=== PATIENT | male | born 1980 | race Caucasian/White ===

== ENCOUNTER 2017-02-21 13:48 | Emergency (ER) | payer OTHER ==
[2017-02-21] MEDS ORDERED: HYDROmorphone 1 MG/ML Syringe IVPUSH ONE (13:58)
[2017-02-21] MEDS ORDERED: Metoclopramide 10 MG/2 ML SDV IVPUSH ONE (13:58)
[2017-02-21 14:00] VITALS: BP 151/104
[2017-02-21] MEDS ORDERED: Sodium Chloride 0.9% 1,000 ML IV SCH (14:00)
--- NOTE | 2017-02-21 14:03 | EDM.PDOC ---
ED HPI GENERAL MEDICAL PROBLEM - General Chief Complaint: Lower Extremity Injury/Pain Stated Complaint: LEFT LEG INJURY Time Seen by Provider: 02/21/17 13:57 Source of Information: Reports: Patient History Limitations: Reports: No Limitations - History of Present Illness INITIAL COMMENTS - FREE TEXT/NARRATIVE: 36-year-old male presents to the ED with an acute injury to his left ankle area. States he stepped down from heavy equipment about 4-6- feet to the ground and stepped in a hole or uneven ground. . This caused him to suffer an eversion /twist injury to the ankle causing him to fall to the ground. He's been unable to weight-bear since that time. He also has a injury to his left hip is full flexion and extension a contusion to the greater trochanteric process. Injury occurred within the last hour. Patient did drink some Gatorade and took some Motrin en route to the hospital. Onset: Today Onset Date: 02/21/17 Onset Time: 13:00 Duration: Minutes: Location: Reports: Lower Extremity, Left (Left ankle) Quality: Reports: Ache, Throbbing Severity: Severe Improves with: Reports: None Worsens with: Reports: Movement Context: Reports: Other (Came down off of heavy equipment 3-1/2 feet to the ground when he stepped down into abnormal level ground resulting in a eversion twisting injury to his ankle causing him to fall to the ground.). 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 ) Left Ankle Pain Score (Numeric/FACES): 4 - Related Data Allergies Allergy/AdvReac Type Severity Reaction Status Date / Time Penicillins Allergy Hives Verified 02/21/17 13:55 Home Meds: Home Meds Polyethylene Glycol 3350 [MiraLAX] 17 gm PO DAILY #1 cont 02/21/17 [Rx] oxyCODONE HCl/Acetaminophen [Percocet 5-325 mg Tablet] 1 - 2 each PO Q4H PRN # 50 tablet 02/21/17 [Rx] Past Medical History - Past Surgical History Musculoskeletal Surgical History: Reports: Other (See Below) (Closed reduction of fracture right ankle and cast application. Previous anterior dislocation left shoulder. Previous boxer's fracture right fifth finger.) Social & Family History - Tobacco Use Smoking Status *Q: Current Every Day Smoker Tobacco Use Within Last Twelve Months: Cigarettes (1 pack per day.) - Alcohol Use Alcohol Use History: Yes Days Per Week of Alcohol Use: 6 - Living Situation & Occupation Occupation: Employed Review of Systems - Review of Systems Review Of Systems: See Below Constitutional: Denies: Chills, Diaphoresis, Fever, Weakness Eyes: Reports: No Symptoms Ears: Reports: No Symptoms Nose: Reports: No Symptoms Mouth/Throat: Reports: No Symptoms Respiratory: Reports: No Symptoms Cardiovascular: Reports: No Symptoms GI/Abdominal: Reports: No Symptoms Genitourinary: Reports: No Symptoms Musculoskeletal: Reports: Back Pain (Occasional problems with low back pain.) Skin: Reports: No Symptoms Neurological: Reports: No Symptoms Psychiatric: Reports: No Symptoms ED EXAM, GENERAL - Physical Exam Exam: See Below Exam Limited By: Uncooperative General Appearance: WD/WN, Moderate Distress (Obvious pain from fractured left ankle.) Throat/Mouth: Normal Inspection, Normal Lips, Normal Oropharynx Head: Atraumatic, Normocephalic Neck: Normal Inspection, Supple, Non-Tender, Full Range of Motion. No: Lymphadenopathy (L), Lymphadenopathy (R) Respiratory/Chest: No Respiratory Distress, Lungs Clear, Normal Breath Sounds, No Accessory Muscle Use Cardiovascular: Normal Peripheral Pulses, Regular Rate, Rhythm, No Edema, No Murmur Peripheral Pulses: 1+: Posterior Tibial (L), 2+: Dorsalis Pedis (L) GI/Abdominal: Normal Bowel Sounds, Soft, Non-Tender, No Organomegaly Back Exam: Normal Inspection, Full Range of Motion Extremities: Normal Inspection, Normal Range of Motion, Normal Capillary Refill , Increased Warmth ( therefore there is no fracture.), Other (Some tenderness over the greater trochanteric process of his left hip but he's able to fully flex and internally externally rotated. There is marked swelling of both the lateral and medial malleolus. I'm strongly suspicious that he may have torn his deltoid ligament medial malleolus. Very painful to touch around the Achilles tendon and calcaneus. Moderately tender on compression of the midfoot as well.) Neurological: Alert, Oriented, CN II-XII Intact, Normal Cognition Psychiatric: Normal Affect, Normal Mood Skin Exam: Warm, Dry, Normal Color, No Rash ED TRAUMA EXTREMITY PROCEDURES - Splinting Left Lower Extremity Splint Site: Below-knee bulky splint Pre-Procedure NV Status: Normal Post-Procedure NV Status: Normal Splint Material: Fiberglass (Fiberglass posterior slab placed as well as a stirrup splint. Large amount of cotton utilized to produce a bulky dressing around the calcaneus and foot.) Splint Design: Stirrup, Posterior Applied & Form Fitted By: Provider Provider Post-Splint Application NV Check: NV Status Normal Complications: No Course - Vital Signs Last Recorded V/S: Last Vital Signs Temp 36.6 C 02/21/17 13:55 Pulse 81 02/21/17 13:55 Resp 18 02/21/17 13:55 BP 151/104 H 02/21/17 13:55 Pulse Ox 100 02/21/17 13:55 - Orders/Labs/Meds Orders: Active Orders 24 hr Category Date Time Status Ankle Min 3V Lt [CR] Stat Exams 02/21/17 13:58 Taken Foot 2V Lt [CR] Stat Exams 02/21/17 14:00 Taken Foot wo Cont Lt [CT] Stat Exams 02/21/17 14:34 Taken Tibia Fibula Lt [CR] Stat Exams 02/21/17 14:02 Taken DRUG SCREEN, URINE [URCHEM] Stat Lab 02/21/17 14:07 Uncollected Sodium Chloride 0.9% [Normal Saline] 1,000 ml Med 02/21/17 14:00 Active IV ASDIRECTED Medication Orders Sodium Chloride (Normal Saline) 1,000 mls @ 150 mls/hr IV ASDIRECTED DWAYNE Last Admin: 02/21/17 14:10 Dose: 150 mls/hr Labs: Laboratory Tests 02/21/17 02/21/17 02/21/17 Range/Units 15:00 15:00 15:00 WBC 9.62 H (4.23-9.07) K/mm3 RBC 4.72 (4.63-6.08) M/mm3 Hgb 14.4 (13.7-17.5) gm/L Hct 42.3 (40.1-51.0) % MCV 89.6 (79.0-92.2) fl MCH 30.5 (25.7-32.2) pg MCHC 34.0 (32.2-35.5) g/dl RDW Std Deviation 40.0 (35.1-43.9) fL Plt Count 261 (163-337) K/mm3 MPV 8.9 L (9.4-12.3) fl Neutrophils % (Manual) 81 H (40-60) % Band Neutrophils % 5 (0-10) % Lymphocytes % (Manual) 12 L (20-40) % Atypical Lymphs % 0 % Monocytes % (Manual) 1 L (2-10) % Eosinophils % (Manual) 1 (0.8-7.0) % Basophils % (Manual) 0 L (0.2-1.2) Platelet Estimate Adequate RBC Morph Comment Normal PT 10.0 (8.0-13.0) SECONDS INR 0.92 APTT 27 (22-36) SECONDS Sodium 141 (136-145) mEq/L Potassium 3.6 (3.5-5.1) mEq/L Chloride 107 (98-107) mEq/L Carbon Dioxide 25 (21-32) mEq/L Anion Gap 12.6 (5-15) BUN 22 H (7-18) mg/dL Creatinine 1.2 (0.7-1.3) mg/dL Est Cr Clr Drug Dosing 81.54 mL/min Estimated GFR (MDRD) > 60 (>60) mL/min BUN/Creatinine Ratio 18.3 H (14-18) Glucose 109 H (74-106) mg/dL Calcium 8.7 (8.5-10.1) mg/dL Total Bilirubin 0.6 (0.2-1.0) mg/dL AST 23 (15-37) U/L ALT 33 (16-63) U/L Alkaline Phosphatase 71 (46-116) U/L Total Protein 6.8 (6.4-8.2) g/dl Albumin 3.8 (3.4-5.0) g/dl Globulin 3.0 gm/dL Albumin/Globulin Ratio 1.3 (1-2) Meds: Medications Generic Name Dose Route Start Last Admin Trade Name Freq PRN Reason Stop Dose Admin Sodium Chloride 1,000 mls @ 150 mls/hr 02/21/17 14:00 02/21/17 14:10 Normal Saline IV 150 mls/hr ASDIRECTED DWAYNE Administration Discontinued Medications Generic Name Dose Route Start Last Admin Trade Name Freq PRN Reason Stop Dose Admin Hydromorphone HCl 1 mg 02/21/17 13:58 02/21/17 14:11 Dilaudid IVPUSH 02/21/17 13:59 1 mg ONETIME ONE Administration Metoclopramide HCl 10 mg 02/21/17 13:58 02/21/17 14:14 Reglan IVPUSH 02/21/17 13:59 10 mg ONETIME ONE Administration - Radiology Interpretation Free Text/Narrative:: 36-year-old male presents to the ED with a work-related injury. 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 He states he may have missed the first step. At any rate he landed hard on his left foot and ankle which propelled him to the ground. Able to weight-bear since that time. He came to the ED with his boot still in place. The boot had to be cut off. He also has some pain in his left lateral hip where he landed on the ground but he has full range of motion night flexion- extension internal/external rotation of the hip itself. Emanation of his lower extremity showed marked swelling of both the medial and lateral malleoli and clinically I thought he would have a bimalleolar fracture. He is also however very tenderness midfoot and over the calcaneus. Injury occurred about an hour prior to coming to the ED. Plan x-ray tib-fib ankle and left foot. IV has been started patient be given Dilaudid 1 mg IV with Reglan 10 mg IV. - Re-Assessments/Exams Free Text/Narrative Re-Assessment/Exam: 02/21/17 14:27 x-rays of the tib-fib do not reveal any fractures or obvious disruption of the tibial fibular ligament. The the talus also appears to be intact. X-rays of the foot reveal a comminuted fracture of the calcaneus and possibly the inferior aspect of the talus. Plan CT of the foot to be carried out. 02/21/17 15:10: CT confirms a severely comminuted fracture of the calcaneus. There may be a nondisplaced fracture in the talus in one spot as well. Plan will be for a bulky dressing to be placed with posterior slab Ortho-Glass and stirrup to protect the area. I will call [facility] and tentatively arrange an appointment with Dr. Leonard Underwood in a week or so. Patient is to be nonweightbearing and elevate the foot with ice pack to the area as much as possible for the next 3 days. 02/21/17 1530: Spoke with retail sales clerk at [facility] and she will have Dr. Brown look at the x-rays tomorrow morning and make a decision as to when he would like to see him in consultation. They will phone the patient directly to arrange an appointment. She was discharged on Percocet 10/10/24 milligram tablets one or 2 every fours 6 hours as needed for pain relief 40 tablets were provided per prescription today. Also advised MiraLAX powder 17 g daily to prevent secondary constipation. Departure - Departure Time of Disposition: 15:37 Disposition: Home, Self-Care 01 Condition: Fair Clinical Impression: Calcaneus fracture, left Qualifiers: Encounter type: initial encounter Calcaneus location: unspecified portion of calcaneus Fracture type: closed Fracture alignment: displaced Qualified Code(s) : S92.002A - Unspecified fracture of left calcaneus, initial encounter for closed fracture Sprain of left medial ankle joint Qualifiers: Encounter type: initial encounter Qualified Code(s): S93.422A - Sprain of deltoid ligament of left ankle, initial encounter - Discharge Information Prescriptions: oxyCODONE HCl/Acetaminophen [Percocet 5-325 mg Tablet] 1 - 2 each PO Q4H PRN # 50 tablet PRN Reason: pain relief. Polyethylene Glycol 3350 [MiraLAX] 17 gm PO DAILY #1 cont Instructions: Ankle Sprain, Calcaneal Fracture Repair Referrals: PCP,None [Primary Care Provider] - Forms: ED Department Discharge Additional Instructions: Evaluation in the emergency room today in regards to work related injury. Acute injury to the left foot and ankle occurred while stepping down from large machine that was possibly as high as 6 feet off the ground. At any rate acute injury occurred to the left ankle with suspect disruption of the deltoid ligament medial aspect of the ankle. Also associated comminuted fracture of the heel bone her calcaneus was appreciated on x-ray and further imaged by CT. A bulky dressing and splint was placed to protect the area until follow-up with orthopedic surgery in about a week to 10 days time. I have left a message with [facility] in [place] and they will call you tomorrow afternoon after Dr. Leonard Underwood has time to look at the films and make a decision as to when they wish to see you in consultation. In the meantime you are to elevate the left foot as much as possible above the level of her heart ideally. Ice pack to the area for one half hour out of every 4 hours for the next 3 days. Pain medication is to be Percocet 5/325 milligrams one or 2 every 4-6 hours for pain relief as needed. I also sent home some Zofran 4 mg that may be taken under the tongue every 4-6 hours if needed for nausea relief as pain medicine can cause nausea particularly empty stomach. Also suggest starting MiraLAX powder 17 g or 1 scoop daily to prevent the development of constipation from the pain pills. You will be off work for a minimum of 3 months and likely closer to 6 months due to severity of this injury. You're to be nonweightbearing crutch walking of course. - My Orders Last 24 Hours: My Active Orders 02/21/17 13:58 Ankle Min 3V Lt [CR] Stat 02/21/17 14:00 Foot 2V Lt [CR] Stat Sodium Chloride 0.9% [Normal Saline] 1,000 ml IV ASDIRECTED 02/21/17 14:02 Tibia Fibula Lt [CR] Stat 02/21/17 14:07 DRUG SCREEN, URINE [URCHEM] Stat 02/21/17 14:34 Foot wo Cont Lt [CT] Stat - Assessment/Plan Last 24 Hours: My Active Orders 02/21/17 13:58 Ankle Min 3V Lt [CR] Stat 02/21/17 14:00 Foot 2V Lt [CR] Stat Sodium Chloride 0.9% [Normal Saline] 1,000 ml IV ASDIRECTED 02/21/17 14:02 Tibia Fibula Lt [CR] Stat 02/21/17 14:07 DRUG SCREEN, URINE [URCHEM] Stat 02/21/17 14:34 Foot wo Cont Lt [CT] Stat
--- NOTE | 2017-02-22 10:07 | CR ---
Left ankle: Four views of the left ankle were obtained. Comparison: No prior study. Comminuted calcaneal fracture is seen. Bohler's angle is depressed. Fracture lines extend into the subtalar joint. Fracture involves the majority of the calcaneus. No additional fracture is seen. Soft tissue swelling is identified. Impression: 1. Extensive and comminuted calcaneal fracture with depression of Bohler's angle. 2. Soft tissue swelling. Diagnostic code #3
--- NOTE | 2017-02-22 10:07 | CR ---
Left foot: Two views of the left foot were obtained. Comparison: No prior left foot study. Extensive calcaneal fracture again noted. Soft tissue swelling is seen. No additional abnormality is identified within the left foot. Impression: 1. Calcaneal fracture again noted. Nothing acute is seen within the left foot. Diagnostic code #3
--- NOTE | 2017-02-22 11:32 | CR ---
Left tibia and fibula: AP and lateral views of the left tibia and fibula were obtained. Calcaneal fractures are again noted with soft tissue swelling. No additional abnormality is identified on left tibia/fibula study. Impression: 1. Calcaneal fracture with surrounding soft tissue swelling. 2. Left tibia/fibula study is otherwise unremarkable. Diagnostic code #3
--- NOTE | 2017-02-25 13:59 | CT ---
CT left foot Technique: Multiple axial sections through the left foot were obtained. Reconstructed sagittal and coronal images were obtained. Findings: Comminuted calcaneal fracture is identified. Some fragments along the medial calcaneus show rotation with displacement. Displacement of the lateral fragments are up to 7 mm. Displacement of medial fragments are up to 1 cm. There is a fracture anteriorly which involves the subtalar joint. Displacement of the fragment at the subtalar joint measures about 4 mm. Boehler 's angle is depressed. No additional fracture is seen within the foot. Impression: 1. Comminuted and mildly displaced fracture throughout the calcaneus. Involvement of the subtalar joint is seen anteriorly. Depressed Boehler's angle is noted. Diagnostic code #5 MTDD
== END 2017-02-21 15:54 | disposition home or self-care (01) ==
LOC: JD.ED 13:48
DX: S92.002A Unspecified fracture of left calcaneus, initial encounter for closed fracture (principal); S93.422A Sprain of deltoid ligament of left ankle, initial encounter; Z88.0 Allergy status to penicillin; Z79.899 Other long term (current) drug therapy; W31.89XA Contact with other specified machinery, initial encounter; Y93.39 Activity, other involving climbing, rappelling and jumping off; Y99.0 Civilian activity done for income or pay
CPT/HCPCS: 29515; 36415; 73590; 73610; 73620; 73700; 80053; 85025; 85610; 85730; 96361; 96374; 96375; 99284; J1170; J2765; J7040; 99283-25

== ENCOUNTER 2022-05-18 18:01 | Emergency (ER) | payer BC, OTHER ==
[2022-05-18] MEDS ORDERED: Diphtheria,Pertussis(Acell),Tetanus Vaccine 0.5 ML Syringe IM ONE (20:17)
[2022-05-19 02:28] VITALS: BP 165/107; PULSE 79
== END 2022-05-18 21:00 | disposition home or self-care (01) ==
LOC: JD.ED 18:01
DX: S61.214A Laceration without foreign body of right ring finger without damage to nail, initial encounter (principal); F17.210 Nicotine dependence, cigarettes, uncomplicated; Z88.0 Allergy status to penicillin; Z23 Encounter for immunization; W26.8XXA Contact with other sharp object(s), not elsewhere classified, initial encounter
CPT/HCPCS: 12001; 90471; 90715; 99282-25